=== PATIENT | male | born 1955 | race Caucasian/White ===

== ENCOUNTER 2016-09-24 12:58 | Emergency (ER) | payer MEDICARE, OTHER ==
[~2016-09-24 12:58] MED LIST: ERYTOIN10 LEFT EYE
[2016-09-24 13:05] VITALS: BP 122/71; PULSE 92; RESP 20; TEMP 98.8; O2SAT 98
[2016-09-24] MEDS ORDERED: ERYTHROMYCIN 0.5% OPTH OINT 3.5 GM TUBO EACH EYE ONE (13:30)
[2016-09-24] MEDS ORDERED: PROPARACAINE HCL 0.5% OPHT SOLN 15 ML BTL EACH EYE ONE (13:30)
--- NOTE | 2016-09-24 13:31 | PD ---
HPI Chief Complaint: Abdominal Pain Time Seen by Provider: 13:09 Travel History International Travel<30 days: No Contact w/Intl Traveler<30days: No Traveled to known affect area: No History of Present Illness HPI 61-year-old man who presents to the emergency department complaining that his eyes been watering for the past week or more. He states that they're irritating and bothering him. Denies doing anything to injure them. Does not recall anything flying into his eyes. He does occasionally cut tile. He does describe some change in his vision. Does not wear contacts. He does wear reading glasses at times. Denies history of congestion or allergy symptoms. Is not a trouble with allergies in the past. He had pinkeye long time ago but has not had any trouble like that since. No sick contacts. He smokes alcohol about a pack per day, drinks alcohol daily. Review systems is positive for multiple other complaints including some right sided costal margin pain it's been ongoing for "a while" as well as feeling more forgetful recently. History Past Medical History Narrative Medical Tobacco use Daily alcohol use Social History Alcohol Use: Yes Tobacco Use: Yes (1 PPD) Allergies-Medications (Allergen,Severity, Reaction): Coded Allergies: No Known Allergies (Unverified , 09/24/16) Reported Meds & Prescriptions Reported Meds & Active Scripts Active Review of Systems Except as stated in HPI: all other systems reviewed are Neg Physical Exam Narrative GENERAL: Well-appearing 61 year-old man, no acute distress. SKIN: Focused skin assessment warm/dry. HEAD: Atraumatic. Normocephalic. EYES: Pupils equal and round. There is a little bit of scleral injection. No obvious tearing. Bright light exam is otherwise unremarkable. Force exam reveals a small amount of minimal uptake across the middle the eye corresponding to the conjunctival fissure. Intraocular pressure 19 on the right , 17 on the left by Paco-Pen. ENT: No nasal bleeding or discharge. Mucous membranes pink and moist. NECK: Trachea midline. No JVD. CARDIOVASCULAR: Warm and well perfused. RESPIRATORY: Normal rate and effort. GASTROINTESTINAL: Abdomen soft, non-tender, nondistended. Hepatic and splenic margins not palpable. MUSCULOSKELETAL: No obvious deformities. Data Data Last Documented VS Vital Signs Date Time Temp Pulse Resp B/P Pulse Ox O2 Delivery O2 Flow Rate FiO2 09/24/16 13:22 16 09/24/16 13:05 98.8 92 122/71 98 Orders Proparacaine 0.5% Opth Soln (Alcaine 0.5 (09/24/16 13:30) Erythromycin 0.5% Opth Oint (Ilotycin 0. (09/24/16 13:30) [facility] Medical Decision Making Medical Screen Exam Complete: Yes Emergency Medical Condition: Yes Differential Diagnosis UV keratitis, conjunctivitis, abrasion, glaucoma, other Narrative Course Medical decision making So 61 year-old man who presents emergency department complaining of her eye irritation and tearing for the past week or so. Floor seen exam would suggest UV keratitis. We'll give him erythromycin ointment, encourage him toward sunglasses when he is outside. We will document visual acuity, check eye pressures. Diagnosis Primary Impression: UV keratitis Additional Instructions: Use erythromycin ointment 4 times daily in both eyes for one week. Wear sunglasses anytime you out in the sun. Follow-up with her primary doctor in the next 3-5 days for repeat evaluation. Return to the emergency department for any new or worsening symptoms. Take acetaminophen or ibuprofen as needed for ear flank pain. Follow-up with your primary doctor for further evaluation. Med/Other Pt SpecificInfo: Prescription(s) given Disposition: 01 DISCHARGE HOME Condition: Stable Darshan Simms MD Sep 24, 2016 13:31
== END 2016-09-24 13:54 | disposition home or self-care (01) ==
LOC: PHED 12:58
DX: H16.8 Other keratitis (principal); Z72.0 Tobacco use; F17.210 Nicotine dependence, cigarettes, uncomplicated
CPT/HCPCS: 99283

== ENCOUNTER 2016-10-30 21:02 | Emergency (ER) | payer MEDICARE, OTHER ==
[~2016-10-30] VITALS: Ht 165.1 cm; Wt 70.0 kg
[2016-10-30 21:19] VITALS: BP 105/67; PULSE 77; RESP 18; TEMP 98.5; O2SAT 97
--- NOTE | 2016-10-30 21:23 | PD ---
HPI Chief Complaint: altered mental status Time Seen by Provider: 21:20 Travel History International Travel<30 days: No Contact w/Intl Traveler<30days: No History of Present Illness HPI The patient arrives by EMS. He was found unresponsive in public. He is 61 years old. He seen here fairly often for alcohol intoxication. He does not recall the course of events today. He states he drinks alcohol most days. He denies drug abuse. He has no specific medical complaints at the time of my assessment. PFSH Past Medical History Arthritis: No Autoimmune Disease: No Anxiety: Yes Depression: No Cancer: No Cardiovascular Problems: No Cerebrovascular Accident: No Diminished Hearing: No Endocrine: No Gastrointestinal Disorders: No Genitourinary: No Headaches: No Heparin Induced Thrombocytopen: No Immune Disorder: No Implanted Vascular Access Dvce: No Musculoskeletal: Yes Neurologic: Yes Psychiatric: Yes Reproductive: No Respiratory: No Migraines: No Seizures: No Sickle Cell Disease: No Thyroid Disease: No Past Surgical History Abdominal Surgery: No Cardiac Surgery: No Ear Surgery: No Endocrine Surgery: No Eye Surgery: No Genitourinary Surgery: No Gynecologic Surgery: No Neurologic Surgery: No Oral Surgery: No Thoracic Surgery: No Other Surgery: Yes (left tibial leyda) Social History Alcohol Use: Yes Tobacco Use: Yes (1 PPD) Substance Use: No Allergies-Medications (Allergen,Severity, Reaction): Coded Allergies: No Known Allergies (Unverified , 10/30/16) Reported Meds & Prescriptions Reported Meds & Active Scripts Active No Active Prescriptions or Reported Medications Review of Systems Except as stated in HPI: all other systems reviewed are Neg General / Constitutional: No: Fever Physical Exam Narrative GENERAL: 61-year-old male well-nourished developed SKIN: Focused skin assessment warm/dry. HEAD: Atraumatic. Normocephalic. EYES: Pupils equal and round. No scleral icterus. No injection or drainage. ENT: No nasal bleeding or discharge. Mucous membranes pink and moist. NECK: Trachea midline. No JVD. CARDIOVASCULAR: Regular rate and rhythm. No murmur appreciated. RESPIRATORY: No accessory muscle use. Clear to auscultation. Breath sounds equal bilaterally. GASTROINTESTINAL: Abdomen soft, non-tender, nondistended. Hepatic and splenic margins not palpable. MUSCULOSKELETAL: No obvious deformities. No clubbing. No cyanosis. No edema. NEUROLOGICAL: Awake and alert. No obvious cranial nerve deficits. Motor grossly within normal limits. Normal speech. PSYCHIATRIC: Somewhat irritable though reasonably cooperative Data Data Last Documented VS Vital Signs Date Time Temp Pulse Resp B/P Pulse Ox O2 Delivery O2 Flow Rate FiO2 10/30/16 21:25 77 18 100 10/30/16 21:19 98.5 105/67 Orders Complete Blood Count With Diff (10/30/16 21:20) Comprehensive Metabolic Panel (10/30/16 21:20) Iv Access Insert/Monitor (10/30/16 21:20) Psych Screen (10/30/16 21:20) Drug Screen, Random Urine (10/30/16 21:20) Alcohol (Ethanol) (10/30/16 21:20) Salicylates (Aspirin) (10/30/16 21:20) Tylenol (Acetaminophen) (10/30/16 21:20) Sodium Chlor 0.9% 1000 Ml Inj (Ns 1000 M (10/30/16 21:30) Labs Laboratory Tests Test 10/30/16 21:35 White Blood Count 5.9 TH/MM3 Red Blood Count 4.09 MIL/MM3 Hemoglobin 13.9 GM/DL Hematocrit 40.6 % Mean Corpuscular Volume 99.3 FL Mean Corpuscular Hemoglobin 34.0 PG Mean Corpuscular Hemoglobin 34.3 % Concent Red Cell Distribution Width 14.9 % Platelet Count 209 TH/MM3 Mean Platelet Volume 7.1 FL Neutrophils (%) (Auto) 53.1 % Lymphocytes (%) (Auto) 34.7 % Monocytes (%) (Auto) 8.8 % Eosinophils (%) (Auto) 1.0 % Basophils (%) (Auto) 2.4 % Neutrophils # (Auto) 3.1 TH/MM3 Lymphocytes # (Auto) 2.1 TH/MM3 Monocytes # (Auto) 0.5 TH/MM3 Eosinophils # (Auto) 0.1 TH/MM3 Basophils # (Auto) 0.1 TH/MM3 CBC Comment DIFF FINAL Differential Comment Sodium Level 143 MEQ/L Potassium Level 3.7 MEQ/L Chloride Level 108 MEQ/L Carbon Dioxide Level 25.2 MEQ/L Anion Gap 10 MEQ/L Blood Urea Nitrogen 5 MG/DL Creatinine 0.63 MG/DL Estimat Glomerular Filtration 130 ML/MIN Rate Random Glucose 78 MG/DL Calcium Level 7.9 MG/DL Total Bilirubin 0.3 MG/DL Aspartate Amino Transf 152 U/L (AST/SGOT) Alanine Aminotransferase 133 U/L (ALT/SGPT) Alkaline Phosphatase 94 U/L Total Protein 7.0 GM/DL Albumin 3.4 GM/DL Salicylates Level 4.0 MG/DL Acetaminophen Level LESS THAN 2.0 MCG/ML Ethyl Alcohol Level 339 MG/DL MDM Medical Decision Making Medical Screen Exam Complete: Yes Emergency Medical Condition: Yes Differential Diagnosis etoh intox, apap od, asa od, electrolyte imbalance, liver disease Narrative Course CBC & BMP Diagram 10/30/16 21:35 AST 152 ALT 133 EtOH 339 Salicylates 4.0 APAP < 2.0 Pt resting comfortably upon reassessment at 10:55 PM. Reassessment prior to dc pt complains of R abdomen pain worse with palpation. There is concern for alcohol related liver disease. We discussed cessation of alcohol. He states he is motivated and will try to cut back on drinking. Diagnosis Primary Impression: Alcohol intoxication Qualified Code: F10.920 - Alcohol intoxication, uncomplicated Additional Impression: Transaminitis Referrals: [facility] 2 days Additional Instructions: You have a choice when it comes to health care, and we are glad that you chose [facility]. Hopefully, we have met your expectations on today's visit. You are welcome to return to [facility] at any time, as we are committed to meeting the health care needs of our community. Med/Other Pt SpecificInfo: No Change to Meds Scripts No Active Prescriptions or Reported Meds Disposition: 01 DISCHARGE HOME Condition: Stable Tim Rodríguez MD October 30, 2016 21:23
[2016-10-30] MEDS ORDERED: SODIUM CHLOR 0.9% 1000 ML INJ 1,000 ML IV ONE (21:30)
[2016-10-30 21:53] LABS: AUTOMATED NEUTROPHIL # 3.1 TH/MM3 (1.8-7.7); BASOPHIL # 0.1 TH/MM3 (0-0.2); BASOPHIL % 2.4 % (0.0-2.0); EOSINOPHIL # 0.1 TH/MM3 (0-0.4); HEMATOCRIT 40.6 % (39.0-51.0); HEMO FLAGS DIFF FINAL; LYMPH % 34.7 % (9.0-44.0); LYMPHOCYTE # 2.1 TH/MM3 (1.0-4.8); MEAN CELL VOLUME 99.3 FL (80.0-100.0); MEAN CORPUSCULAR HGB CONC 34.3 % (32.0-36.0); MONO % 8.8 % (0.0-8.0); NEUT % 53.1 % (16.0-70.0); PLATELET COUNT 209 TH/MM3 (150-450); RED BLOOD COUNT 4.09 MIL/MM3 (4.50-5.90); RED CELL DISTRIBUTION WIDTH 14.9 % (11.6-17.2); WHITE BLOOD COUNT 5.9 TH/MM3 (4.0-11.0)
[2016-10-30 22:15] LABS: ANION GAP 10 MEQ/L (5-15); AST (GOT) 152 U/L (15-37); BICARBONATE 25.2 MEQ/L (21.0-32.0); BLOOD UREA NITROGEN 5 MG/DL (7-18); CHLORIDE 108 MEQ/L (98-107); GLOMERULAR FILTRATION RATE 130 ML/MIN (>89); POTASSIUM 3.7 MEQ/L (3.5-5.1); SODIUM (NA) 143 MEQ/L (136-145)
[2016-10-30 22:29] LABS: ACETAMINOPHEN LESS THAN 2.0 MCG/ML (10.0-30.0); ALKALINE PHOSPHATASE 94 U/L (45-117); ALT (GPT) 133 U/L (12-78); TOTAL BILIRUBIN ADULT 0.3 MG/DL (0.2-1.0)
[2016-10-31 03:00] VITALS: BP 118/77; PULSE 88; RESP 18; TEMP 98.1; O2SAT 100
[2016-10-31 05:31] LABS: AMPHETAMINE, URINE NEG (NEG); BARBITURATES, URINE NEG (NEG); COCAINE, URINE POS (NEG)
[2016-10-31 05:41] VITALS: BP 115/60; PULSE 87; RESP 18; TEMP 98.1; O2SAT 100
[2016-10-31 07:10] VITALS: BP 132/72; PULSE 86; RESP 16; TEMP 97.9; O2SAT 100
[2016-10-31 10:34] VITALS: BP 142/75
== END 2016-10-31 10:36 | disposition home or self-care (01) ==
LOC: NEPC 21:02
DX: F10.120 Alcohol abuse with intoxication, uncomplicated (principal); R74.0 Nonspecific elevation of levels of transaminase and lactic acid dehydrogenase [LDH]; Y90.8 Blood alcohol level of 240 mg/100 ml or more
CPT/HCPCS: 80053; 80307; 85025; 99284; J7030